=== PATIENT | male | born 1995 | race Two or more races ===

== ENCOUNTER 2017-01-26 04:15 | Emergency (ER) | payer SELFPAY ==
[~2017-01-26] VITALS: Ht 172.7 cm; Wt 95.0 kg
[2017-01-26] MEDS ORDERED: SODIUM CHLORIDE 0.9% 1,000 ML IV ONE (04:21)
[2017-01-26] MEDS ORDERED: SODIUM CHLORIDE FLUSH 10ML SYR IVF ONE (04:30)
[2017-01-26 04:44] LABS: HEMATOCRIT 46.3 % (39.2-51.8); HEMOGLOBIN 15.7 g/dL (13.7-18.0); WHITE BLOOD COUNT 9.1 x10^3/uL (3.4-10)
[2017-01-26 04:54] LABS: BLOOD UREA NITROGEN 18 mg/dL (7-18)
[2017-01-26 08:39] VITALS: BP 114/57
== END 2017-01-26 08:42 | disposition home or self-care (01) ==
LOC: ED 05:00
DX: F10.120 Alcohol abuse with intoxication, uncomplicated (principal)
CPT/HCPCS: 36415; 80048; 80307; 82040; 85025; 96360; 96361; 99285; J7030; G0479

== ENCOUNTER 2020-11-17 04:40 | Emergency (ER) | payer SELFPAY ==
[~2020-11-17] VITALS: Ht 170.2 cm; Wt 66.2 kg
--- NOTE | 2020-11-17 04:45 | NUR ---
THIS IS A 25 YO M BIB EMS/[facility] W/ C/O HIGH HR. PER [facility] PT CONSUMED UNKNOWN SUBSTANCE. PT NOT COOPERATING W/ QUESTIONS. PT TACHYCARDIC 160'S, TACHYPNEIC, OTHER VS WDL. PT RESTING ON GURNEY W/ SIDE RAILS UPX2, 2 [facility] OFFICERS AT BEDSIDE. AWAITING ED EVAL.
[2020-11-17] MEDS ORDERED: LORazepam 2 MG/ML, 1ML ONE (04:47)
--- NOTE | 2020-11-17 04:49 | NUR ---
PER PT, SNORTED UNKNOWN WHITE POWDER.
--- NOTE | 2020-11-17 04:50 | NUR ---
REPORT TO KELLIE BASHIR.
--- NOTE | 2020-11-17 04:53 | NUR ---
assumed care of pt. pt BIB [facility] for medical clearance after snorting an "unknown white powder" and tachycardia pt is A&O x4. denies ETOH.
[2020-11-17] MEDS ORDERED: SODIUM CHLORIDE 0.9% 1,000ML IVBOLUS ONE (05:00)
[2020-11-17] MEDS ORDERED: LORazepam 2 MG/ML, 1ML IVPush ONE (05:00)
[2020-11-17 05:32] LABS: MEAN CORPUSCULAR HGB CONC 33.7 g/dL (33.2-36.2); MEAN PLATELET VOLUME 8.7 fL (7.4-10.4); PLATELET COUNT 318 x10^3/uL (130-400); RED BLOOD COUNT 5.22 x10^6/uL (4.38-5.82); RED CELL DISTRIBUTION WIDTH 13.7 % (9.4-14.8)
[2020-11-17 05:36] LABS: ALANINE AMINOTRANSFERASE 36 U/L (12-78); ALBUMIN 4.8 g/dL (3.4-5.0); ANION GAP 12 mmol/L (5-15); CALCIUM 9.7 mg/dL (8.5-10.1); CHLORIDE 108 mmol/L (98-107); CREATININE 1.86 mg/dL (0.7-1.3); SALICYLATE LEVEL 1.9 mg/dL (2.8-20.0)
[2020-11-17 05:38] LABS: ALKALINE PHOSPHATASE 117 U/L (45-117); BILIRUBIN,TOTAL 0.5 mg/dL (0.2-1.0); TOTAL PROTEIN 8.9 g/dL (6.4-8.2)
--- NOTE | 2020-11-17 05:49 | NUR ---
pt dozing intermittently. [facility] remains at bedside
[2020-11-17 05:55] LABS: BAND#(MANUAL) 1.81 x10^3/uL; BANDS%(MANUAL) 9 % (0-7); LYMPHS% (MANUAL) 4 % (22-44); MONOS% (MANUAL) 3 % (2-9); SEG#(MANUAL) 16.88 x10^3/uL (1.8-6.8); SEGS% (MANUAL) 84 % (42-75)
[2020-11-17 05:56] LABS: <PLATELET ESTIMATE> ADEQUATE; <PLT MORPHOLOGY> NORMAL PLT MORPH; <RBC MORPHOLOGY> NORMAL
--- NOTE | 2020-11-17 06:08 | NUR ---
pt moved from T3 to 21. report to Мария BASHIR
--- NOTE | 2020-11-17 06:11 | NUR ---
REPORT RECEIVED FROM KELLIE BASHIR
--- NOTE | 2020-11-17 06:15 | NUR ---
PT SITTING UPRIGHT ON [facility] VSS. PT PROVIDED URINAL AND URINE SAMPLE PROVIDED. WALKED TO LAB BY THIS RN. NO ADDITIONAL NEEDS AT THIS TIME. [facility] AT BEDSIDE.
--- NOTE | 2020-11-17 07:01 | NUR ---
BEDSIDE REPORT FROM MCKAY GAUTHIER FOR TRANSFER OF PATIENT CARE.
--- NOTE | 2020-11-17 07:01 | NUR ---
REPORT GIVEN TO HENRI BASHIR
[2020-11-17 07:04] LABS: AMPHETAMINE SCREEN, URINE Positive (Negative); BARBITURATE SCREEN, URINE Negative (Negative); BENZODIAZEPINE SCREEN, URINE Negative (Negative); CANNABINOID SCREEN, URINE Positive (Negative); COCAINE SCREEN, URINE Positive (Negative); METHADONE SCREEN, URINE Negative (Negative); OPIATE SCREEN, URINE Negative (Negative)
[2020-11-17 07:17] VITALS: BP 123/72
--- NOTE | 2020-11-17 07:37 | NUR ---
IV removed with tip intact. Patient given discharge instructions and they have confirmed that they understand the instructions. Patient ambulatory with steady gait from ED in custody with law enforcement staff. NAD, all questions answered appropriately, denies additional needs at this time. No personal belongings left in room after discharge.
== END 2020-11-17 07:38 | disposition home or self-care (01) ==
LOC: ED 06:36
DX: F12.129 Cannabis abuse with intoxication, unspecified (principal); F14.129 Cocaine abuse with intoxication, unspecified; F15.129 Other stimulant abuse with intoxication, unspecified; R00.0 Tachycardia, unspecified; R06.89 Other abnormalities of breathing
CPT/HCPCS: 36415; 71045; 80053; 80299; 80307; 80320; 80329; 85025; 93005; 96361; 96374; 99285; J2060; J7030; G0480